=== PATIENT | female | born 2000 | race Caucasian/White ===

== ENCOUNTER 2024-05-25 09:31 | Outpatient (CLI) | payer OTHER ==
[~2024-05-25 09:31] MED LIST: Gadobenate Dimeglumine 2 ML, Sodium Chloride 0.9% 250 ML 10 ML, Iopamidol 8 ML, Lidocai... FS SCH
[2024-05-25] MEDS ORDERED: Lidocaine 1% (PF) 30 ML VIAL ONE (10:19)
[2024-05-25] MEDS ORDERED: Sodium Bicarbonate 2.5 MEQ/5 ML SDV ONE (10:21)
== END 2024-05-25 09:32 | disposition home or self-care (01) ==
LOC: CSHRAD 09:31
PROVIDERS: ATTEND Family Medicine Sports Medicine
DX: S43.431A Superior glenoid labrum lesion of right shoulder, initial encounter (principal)
CPT/HCPCS: 23350; 77002